=== PATIENT | male | born 1970 | race Caucasian/White ===

== ENCOUNTER 2019-12-16 22:26 | Emergency (ER) | payer OTHER ==
[~2019-12-16] VITALS: Ht 185.4 cm; Wt 136.3 kg
[2019-12-16 22:40] VITALS: BP 135/72
[2019-12-17] MEDS ORDERED: KETOROLAC 60 MG/2 ML VIAL. IM ONE (00:45)
[2019-12-17] MEDS ORDERED: OXYC1TAB15 PO (01:23)
--- NOTE | 2019-12-17 01:26 | PHYS DOC ---
Past Medical History Past Medical History: GERD Past Surgical History: Other Additional Past Surgical Histo: umbilical hernia Smoking Status: Never Smoker Alcohol Use: Rarely General Adult EDM: Chief Complaint: LOWEREXTREMITY INJURY HPI: HPI: Patient is a 48 year old male who presents with right knee pain and injury. Patient reports that on Wednesday evening he was playing with some fellows and during the basketball game he pivoted. When he pivoted his right knee seem to go outward and this caused him to lose his balance. He struck his left thigh on the retaining wall complains of some paresthesias in that area. His biggest concern however is that he has with weightbearing. He thinks that his knee is unstable. He does not think he broke it and did not think that an x-ray was necessary. He otherwise reports he has been doing well. He has no complaints of chest pain, shortness of breath, fever chills, cold exposure or symptoms. Review of Systems: Review of Systems: Constitutional: Denies fever or chills. [] Eyes: Denies change in visual acuity. [] HENT: Denies nasal congestion or sore throat. [] Respiratory: Denies cough or shortness of breath. [] Cardiovascular: Denies chest pain or edema. [] GI: Denies abdominal pain, nausea, vomiting, bloody stools or diarrhea. [] : Denies dysuria. [] Musculoskeletal: Denies back pain [] Integument: Denies rash. [] [] Heart Score: Risk Factors: Risk Factors: DM, Current or recent (<one month) smoker, HTN, HLP, family history of CAD, obesity. Risk Scores: Score 0 - 3: 2.5% MACE over next 6 weeks - Discharge Home Score 4 - 6: 20.3% MACE over next 6 weeks - Admit for Clinical Observation Score 7 - 10: 72.7% MACE over next 6 weeks - Early Invasive Strategies Current Medications: Current Medications Medications (Trade) Dose Ordered Sig/Indira Start Time Stop Time Status Last Admin Dose Admin Ketorolac Tromethamine (Toradol Im) 60 mg 1X ONCE 12/17/19 00:45 12/17/19 00:46 DC 12/17/19 00:40 60 MG Allergies: Allergies: Allergies Coded Allergies Type Severity Reaction Last Updated Verified No Known Drug Allergies 12/17/19 No Physical Exam: PE: Constitutional: Well developed, well nourished, no acute distress, non-toxic appearance. [] HENT: Normocephalic, atraumatic, bilateral external ears normal, oropharynx moist, no oral exudates, nose normal. [] Eyes: PERRLA, EOMI, conjunctiva normal, no discharge. [] Neck: Normal range of motion, no tenderness, supple, no stridor. [] Cardiovascular:Heart rate regular rhythm, no murmur [] Lungs & Thorax: Bilateral breath sounds clear to auscultation [] [] Skin: Warm, dry, no erythema, no rash. [] Back: No tenderness, no CVA tenderness. [] Extremities: The unaffected extremities were with functional range of motion and no deformity. The right knee was inspected closely. No effusion was identified. There was no pain with range of motion. The Lateral collateral ligament was unstable when compared to the left, the other ligaments were all tested and felt to be stable. [] Neurologic: Alert and oriented X 3, normal motor function, normal sensory function, no focal deficits noted. [] [] Current Patient Data: Vital Signs: Vital Signs Date Time Temp Pulse Resp B/P (MAP) Pulse Ox O2 Delivery O2 Flow Rate FiO2 12/16/19 22:40 97.9 74 18 135/72 (93) 96 Room Air 97.9 EKG: EKG: [] Radiology/Procedures: Radiology/Procedures: [] Course & Med Decision Making: Course & Med Decision Making Pertinent Labs and Imaging studies reviewed. (See chart for details) 0121-the patient was seen and examined. At this time he does have some ligamentous instability of the right knee. I think he is suffering from a lateral collateral ligament damage. I discussed with him the treatment plan, reasons to return and need for follow-up. [] Dragon Disclaimer: Dragon Disclaimer: This electronic medical record was generated, in whole or in part, using a voice recognition dictation system. Departure Departure Impression: Primary Impression: Knee pain, right Qualified Codes: M25.561 - Pain in right knee Additional Impression: Tear of lateral collateral ligament of right knee Qualified Codes: S83.421A - Sprain of lateral collateral ligament of right knee, initial encounter Disposition: 01 HOME, SELF-CARE Condition: IMPROVED Referrals: PETER PASCAL (PCP) REGAN PACHECO MD Patient Instructions: Knee - Ligament Injury, Arthroscopy, Lateral Collateral Knee Ligament Sprain with Phase I Re[facility]Sports[facility] Additional Instructions: Rest, ice, elevate, leave the knee immobilizer on, use crutches to ambulate, you may toe touch only Scripts Oxycodone/Apap 5-325 (PERCOCET 5-325 MG TABLET ) 1 Each Tablet 1-2 EACH PO PRN TID PRN for MODERATE PAIN 4-6, #20 TAB pain Prov: KVNG LERMA MD 12/17/19 Justicifation of Admission Dx: Justifications for Admission: Justification of Admission Dx: N/A KVNG LERMA MD Dec 17, 2019 01:26
== END 2019-12-17 01:42 | disposition home or self-care (01) ==
LOC: ER 22:26
DX: S83.421A Sprain of lateral collateral ligament of right knee, initial encounter (principal); R20.2 Paresthesia of skin; K21.9 Gastro-esophageal reflux disease without esophagitis; W22.01XA Walked into wall, initial encounter; Y93.67 Activity, basketball; Y92.89 Other specified places as the place of occurrence of the external cause; Y99.8 Other external cause status
CPT/HCPCS: 29505; 96372; 99283; J1885

== ENCOUNTER 2020-02-24 08:24 | Emergency (ER) | payer OTHER ==
[~2020-02-24] VITALS: Ht 185.4 cm; Wt 140.8 kg
[~2020-02-24 08:24] MED LIST: OXYC1TAB15 PO
[2020-02-24 09:58] LABS: CALCIUM 8.8 mg/dL (8.5-10.1); CREATININE 1.3 mg/dL (0.7-1.3); GFR 58.9; POTASSIUM 3.9 mmol/L (3.5-5.1)
[2020-02-24] MEDS ORDERED: CONTRAST GIVEN. MC PRN (10:15)
[2020-02-24] MEDS ORDERED: IOHEXOL 300 MG/ML 100ML VIAL. IV ONE (10:15)
--- NOTE | 2020-02-24 10:35 | RAD ---
CT pelvis Without Contrast: History: Reason: RT BUTTOCK abscess, UNABLE TO GET IV ACCESS / Spl. Instructions: / History: Comparison: None. Procedure: Axial images are obtained of the pelvis, without IV or oral contrast. Oral Contrast: No Findings: The urinary bladder appears normal. The prostate is not enlarged. There is bilateral fat-containing inguinal canal hernias. There is a 3 cm x 1 cm soft tissue density in the subcutaneous fat deep to the gluteal cleft on the right near the anal canal below the perineum. There is mild surrounding inflammation. There is no focal fluid collection. There is no air collection. Impression: Small area of inflammation in the subcutaneous fat deep to the gluteal cleft on the right posteriorly and inferiorly. This could be inflammation or infection. There is no focal abscess. End impression PQRS Compliance Statement: One or more of the following individualized dose reduction techniques were utilized for this examination: 1. Automated exposure control 2. Adjustment of the mA and/or kV according to patient size 3. Use of iterative reconstruction technique Electronically signed by: Zeke Jernigan III, MD (02/24/2020 10:33 AM) [id number]
--- NOTE | 2020-02-24 11:04 | PHYS DOC ---
Past Medical History Past Medical History: GERD Past Surgical History: Other Additional Past Surgical Histo: umbilical hernia,I&D ABSCESS Smoking Status: Never Smoker Alcohol Use: Rarely General Adult EDM: Chief Complaint: ANIMAL BITE HPI: HPI: Patient is a 49-year-old male who presents to the emergency room complaining of an area of redness and swelling on his buttocks. He states that his puppy bit him last night at 9:00 and at 930 he noticed that the area was red and inflamed. He states that the pain has gotten worse. He denies any fevers. He states it feels very similar to when he had a rectal abscess. He denies any difficulty with constipation or drainage from his anus. Review of Systems: Review of Systems: General: Denies fever, chills, sweats, fatigue Eyes: Denies drainage, blurred vision, eye redness HENT: Denies rhinorrhea, sore throat, earache Respiratory: Denies cough, shortness of breath, wheezing Cardiac: Denies edema, palpitations, chest pain GI: Denies abdominal pain, Nausea, vomiting MSK: Denies back pain, neck pain Skin: Denies rash, jaundice Neuro: Denies headache, dizziness Psychiatric: Denies SI/HI Heart Score: Risk Factors: Risk Factors: DM, Current or recent (<one month) smoker, HTN, HLP, family history of CAD, obesity. Risk Scores: Score 0 - 3: 2.5% MACE over next 6 weeks - Discharge Home Score 4 - 6: 20.3% MACE over next 6 weeks - Admit for Clinical Observation Score 7 - 10: 72.7% MACE over next 6 weeks - Early Invasive Strategies Current Medications: Current Medications Medications (Trade) Dose Ordered Sig/Indira Start Time Stop Time Status Last Admin Dose Admin Info (CONTRAST GIVEN -- Rx MONITORING) 1 each PRN DAILY PRN 02/24/20 10:15 02/26/20 10:14 Iohexol (Omnipaque 300 Mg/ml) 60 ml 1X ONCE 02/24/20 10:15 02/24/20 10:16 DC Allergies: Allergies: Allergies Coded Allergies Type Severity Reaction Last Updated Verified No Known Drug Allergies 12/17/19 No Physical Exam: PE: General: Awake, alert, NAD. Well Nourished, well hydrated. Cooperative HEENT: Atraumatic, EOMI, PERRL, airway patent, moist oral mucosa Neck: Supple, trachea midline Respiratory: CTA bilaterally, normal effort, no wheezing/crackles CV: RRR, no murmur, cap refill <2 GI: Soft, nondistended, nontender, no masses MSK: No obvious deformities Skin: Warm, dry, 2x2 centimeter area of erythema and induration without fluctuance to the right inner buttock Neuro: A&O x3, speech NL, sensory and motor grossly intact, no focal deficits Psych: Normal affect, normal mood, not suicidal or homicidal Current Patient Data: Labs: Laboratory Tests Test 02/24/20 09:35 Sodium Level 140 mmol/L (136-145) Potassium Level 3.9 mmol/L (3.5-5.1) Chloride Level 105 mmol/L (98-107) Carbon Dioxide Level 25 mmol/L (21-32) Anion Gap 10 (6-14) Blood Urea Nitrogen 14 mg/dL (8-26) Creatinine 1.3 mg/dL (0.7-1.3) Estimated GFR (Cockcroft-Gault) 58.9 Glucose Level 129 mg/dL (70-99) H Calcium Level 8.8 mg/dL (8.5-10.1) Laboratory Tests 02/24/20 09:35 Vital Signs: Vital Signs Date Time Temp Pulse Resp B/P (MAP) Pulse Ox O2 Delivery O2 Flow Rate FiO2 02/24/20 08:36 98.2 75 17 163/78 (106) 96 Room Air 98.2 EKG: EKG: [] Radiology/Procedures: Radiology/Procedures: [] Course & Med Decision Making: Course & Med Decision Making Pertinent Labs and Imaging studies reviewed. (See chart for details) Patient is 49-year-old male presents to the emergency room with redness to the right inner buttock. Area does not appear to be fluctuant. Patient does state it feels similar to when he had a subrectal abscess. CT will be done due to that history. CT is negative though shows cellulitis. Patient will be treated with clindamycin. Patient's test results and vitals while in the ED were fully reviewed and discussed with the patient. Patient is stable and at this time does not need admission to the hospital. We have discussed strict return precautions and the importance of following up with their Primary Care Physician. Patient stated understanding and was given an opportunity to ask any questions. Patient is in agreement with plan. Dragon Disclaimer: Dragon Disclaimer: This electronic medical record was generated, in whole or in part, using a voice recognition dictation system. Departure Departure Impression: Primary Impression: Cellulitis of buttock Disposition: 01 DC HOME SELF CARE/HOMELESS Condition: STABLE Referrals: PETER PASCAL (PCP) Patient Instructions: Cellulitis Scripts Clindamycin Hcl (CLINDAMYCIN HCL) 150 Mg Capsule 3 CAP PO TID for 10 Days, #90 CAP Prov: VIGNESH PEDROZA MD 02/24/20 VIGNESH PEDROZA MD Feb 24, 2020 11:04
[2020-02-24] MEDS ORDERED: CLIN150C14 PO (11:10)
[2020-02-24 11:40] VITALS: BP 131/78
== END 2020-02-24 11:50 | disposition home or self-care (01) ==
LOC: ER 08:24
DX: L03.317 Cellulitis of buttock (principal); K21.9 Gastro-esophageal reflux disease without esophagitis
CPT/HCPCS: 36415; 72192; 80048; 99284

== ENCOUNTER 2020-03-02 06:03 | Emergency (ER) | payer OTHER ==
[~2020-03-02] VITALS: Ht 185.4 cm; Wt 136.4 kg
[~2020-03-02 06:03] MED LIST changes: +CLIN150C14 PO
[2020-03-02 06:20] VITALS: BP 130/71
[2020-03-02] MEDS ORDERED: PRED20TA PO (06:51)
[2020-03-02] MEDS ORDERED: FAMO-63 PO (06:51)
[2020-03-02] MEDS ORDERED: SULF1TAB24 PO (06:51)
[2020-03-02] MEDS ORDERED: HYDR-2868 PO (06:51)
--- NOTE | 2020-03-02 06:51 | PHYS DOC ---
Past Medical History Past Medical History: GERD Past Surgical History: Other Additional Past Surgical Histo: umbilical hernia,I&D ABSCESS, NOSE Smoking Status: Never Smoker Alcohol Use: None General Adult EDM: Chief Complaint: SKIN RASH/ABSCESS HPI: HPI: Patient is a 49 year old male who presented to ER with itching rash all over his body started yesterday. Patient had been on clindamycin for abscess on his buttock for about 7-days. Patient denies any chest pain, no trouble breathing. He denies any trouble swallowing or tongue swelling. Review of Systems: Review of Systems: Constitutional: Denies fever or chills. [] Eyes: Denies change in visual acuity. [] HENT: Denies nasal congestion or sore throat. [] Respiratory: Denies cough or shortness of breath. [] Cardiovascular: Denies chest pain or edema. [] GI: Denies abdominal pain, nausea, vomiting, bloody stools or diarrhea. [] : Denies dysuria. [] Musculoskeletal: Denies back pain or joint pain. [] Integument: Positive for rash and itching. Neurologic: Denies headache, focal weakness or sensory changes. [] Endocrine: Denies polyuria or polydipsia. [] Lymphatic: Denies swollen glands. [] Psychiatric: Denies depression or anxiety. [] Heart Score: Risk Factors: Risk Factors: DM, Current or recent (<one month) smoker, HTN, HLP, family history of CAD, obesity. Risk Scores: Score 0 - 3: 2.5% MACE over next 6 weeks - Discharge Home Score 4 - 6: 20.3% MACE over next 6 weeks - Admit for Clinical Observation Score 7 - 10: 72.7% MACE over next 6 weeks - Early Invasive Strategies Current Medications: Current Medications Medications (Trade) Dose Ordered Sig/Indira Start Time Stop Time Status Last Admin Dose Admin Famotidine (Pepcid) 20 mg 1X ONCE 03/02/20 07:00 03/02/20 07:01 Methylprednisolone Sodium Succinate (SOLU-Medrol 125MG VIAL) 125 mg 1X ONCE 03/02/20 07:00 03/02/20 07:01 Allergies: Allergies: Allergies Coded Allergies Type Severity Reaction Last Updated Verified No Known Drug Allergies 12/17/19 No Physical Exam: PE: Constitutional: Well developed, well nourished, no acute distress, non-toxic appearance. [] HENT: Normocephalic, atraumatic, bilateral external ears normal, oropharynx moist, no oral exudates, nose normal. [] Eyes: PERRLA, EOMI, conjunctiva normal, no discharge. [] Neck: Normal range of motion, no tenderness, supple, no stridor. [] Cardiovascular:Heart rate regular rhythm, no murmur [] Lungs & Thorax: Bilateral breath sounds clear to auscultation [] Abdomen: Bowel sounds normal, soft, no tenderness, no masses, no pulsatile masses. [] Skin: diffuse maculopapular rash on extremities and chest. Back: No tenderness, no CVA tenderness. [] Extremities: No tenderness, no cyanosis, no clubbing, ROM intact, no edema. [] Neurologic: Alert and oriented X 3, normal motor function, normal sensory function, no focal deficits noted. [] Psychologic: Affect normal, judgement normal, mood normal. [] Current Patient Data: Vital Signs: Vital Signs Date Time Temp Pulse Resp B/P (MAP) Pulse Ox O2 Delivery O2 Flow Rate FiO2 03/02/20 06:20 97.8 85 130/71 (90) 98 97.8 03/02/20 06:03 18 Room Air EKG: EKG: [] Radiology/Procedures: Radiology/Procedures: [] Course & Med Decision Making: Course & Med Decision Making Pertinent Labs and Imaging studies reviewed. (See chart for details) Patient is a 49-year-old male who presents with rash, suspicious of allergic to clindamycin, will replace clindamycin with Bactrim Matthew RAMOS Disclaimer: Matthew Disclaimer: This electronic medical record was generated, in whole or in part, using a voice recognition dictation system. Departure Departure Impression: Primary Impression: Allergic reaction caused by a drug Disposition: 01 DC HOME SELF CARE/HOMELESS Condition: STABLE Referrals: PETER PASCAL (PCP) please follow up with your doctor on Wednesday for reevaluation Patient Instructions: Doxylamine tablets (allergy) Additional Instructions: stop taking CLINDAMYCIN now. You are allergic to to it. Scripts Hydroxyzine Pamoate (VISTARIL) 25 Mg Capsule 1 CAP PO TID PRN for ITCHING, #30 CAP 1 Refill Prov: HARLAN MCBRIDE DO 03/02/20 Prednisone (PREDNISONE) 20 Mg Tablet 1 TAB PO DAILY for 7 Days, #7 TAB Prov: HARLAN MCBRIDE DO 03/02/20 Famotidine (PEPCID) 20 Mg Tablet 20 MG PO HS for 7 Days, #7 TAB Prov: HARLAN MCBRIDE DO 03/02/20 Sulfamethoxazole/Trimethoprim (BACTRIM DS TABLET) 1 Each Tablet 1 TAB PO BID for 7 Days, #14 TAB 0 Refills Prov: HARLAN MCBRIDE DO 03/02/20 HARLAN MCBRIDE DO Mar 02, 2020 06:51
[2020-03-02] MEDS ORDERED: HYDR25CA PO (06:53)
[2020-03-02] MEDS ORDERED: FAMOTIDINE 20 MG TABLET. PO ONE (07:00)
[2020-03-02] MEDS ORDERED: methylPREDNISolone SOD SUCC PF 125 MG/2 ML VIAL. IM ONE (07:00)
== END 2020-03-02 07:00 | disposition home or self-care (01) ==
LOC: ER 06:03
DX: L27.0 Generalized skin eruption due to drugs and medicaments taken internally (principal); T36.8X5A Adverse effect of other systemic antibiotics, initial encounter; K21.9 Gastro-esophageal reflux disease without esophagitis; Y92.89 Other specified places as the place of occurrence of the external cause
CPT/HCPCS: 96372; 99283; J2930

== ENCOUNTER 2021-02-15 17:30 | Emergency (ER) | payer OTHER ==
[~2021-02-15] VITALS: Ht 154.9 cm; Wt 127.0 kg
[~2021-02-15 17:30] MED LIST changes: -CLIN150C14 PO; +CLIN150C16 PO; +FAMO-63 PO; +HYDR-2868 PO; +HYDR25CA PO; +PRED20TA PO; +SULF1TAB24 PO
[2021-02-15 18:13] VITALS: BP 148/75
--- NOTE | 2021-02-15 18:32 | PHYS DOC ---
Past Medical History Past Medical History: GERD Past Surgical History: No Surgical History Additional Past Surgical Histo: umbilical hernia,I&D ABSCESS, NOSE Smoking Status: Never Smoker Alcohol Use: None General Adult EDM: Chief Complaint: ANKLE PROBLEM HPI: HPI: Patient is a 50 year old male who presents to the ED today to be evaluated after falling off a ladder. Patient states he was working on his roof, he states his ladder started to move, he jumped off the ladder roughly from 6 foot and landed on the ground on his left heel. Patient denies any loss of consciousness, denies hitting his head on the ground. He is complaining of moderate pain on the heel and Achilles tendon worse on weightbearing. He states he was hoping to get an MRI to rule out Achilles tendon tear. Patient denies any back pain. Review of Systems: Review of Systems: Constitutional: Denies fever or chills. [] Musculoskeletal: Reports left heel/Achilles tendon pain denies back pain Integument: Denies rash. [] Neurologic: Denies headache, focal weakness or sensory changes. [] Psychiatric: Denies depression or anxiety. [] Heart Score: C/O Chest Pain: N/A Risk Factors: Risk Factors: DM, Current or recent (<one month) smoker, HTN, HLP, family history of CAD, obesity. Risk Scores: Score 0 - 3: 2.5% MACE over next 6 weeks - Discharge Home Score 4 - 6: 20.3% MACE over next 6 weeks - Admit for Clinical Observation Score 7 - 10: 72.7% MACE over next 6 weeks - Early Invasive Strategies Allergies: Allergies: Allergies Coded Allergies Type Severity Reaction Last Updated Verified No Known Drug Allergies 12/17/19 No Physical Exam: PE: Constitutional: Well developed, well nourished, no acute distress, non-toxic appearance. [] Skin: Warm, dry, no erythema, no rash. [] Back: No tenderness, no CVA tenderness. [] Extremities: Left foot/lower extremity with no obvious deformity. Tenderness on palpation of the left Achilles tendon and heel, bone spur noted on the left heel. Patient able to flex and extend the left foot. Left to left pedal pulse. Cap refill less than 2 seconds in left toes. Sensation intact to the left lower extremity. Neurologic: Alert and oriented X 3, normal motor function, normal sensory function, no focal deficits noted. [] Psychologic: Affect normal, judgement normal, mood normal. [] Current Patient Data: Vital Signs: Vital Signs Date Time Temp Pulse Resp B/P (MAP) Pulse Ox O2 Delivery O2 Flow Rate FiO2 02/15/21 18:13 98.6 64 18 148/75 (99) Room Air 98.6 EKG: EKG: [] Radiology/Procedures: Radiology/Procedures: []PROCEDURE: FOOT LEFT 3V LEFT FOOT AP LATERAL OBLIQUE Clinical Indication: Reason: heal achiles pain fell off a 6ft ladder / Spl. Instructions: / History: Comparison: None. Findings: There is no acute fracture or dislocation. The bony alignment is normal. Mineralization is normal. No bony erosion. There is moderate Achilles enthesophyte. There is mild soft tissue swelling posterior to the enthesophyte. There is no dorsal soft tissue swelling of the foot. IMPRESSION: No acute fracture. Electronically signed by: Jesse Ellis MD (02/15/2021 7:19 PM) [facility] DICTATED and SIGNED BY: JESSE ELLIS MD DATE: 02/15/21 [id number] Course & Med Decision Making: Course & Med Decision Making Pertinent Labs and Imaging studies reviewed. (See chart for details) This a 50-year-old male patient who presents to the ED today with complaints of left heel/ left Achilles tendon pain that began after he jumped off a 6 foot ladder landing on his heel. Patient denies any back pain. He is requesting MRI of his left leg to rule out Achilles tendon tear. Informed patient we typically do not do MRI for Achilles tendon tear is in the emergency room. Left foot x-rays were done which were negative for any acute findings. He was put in an orthopedic shoe by the ED RN. He was instructed to contact the provided orthopedic doctor on Wednesday morning and set up a follow-up appointment Matthew Disclaimer: Matthew Disclaimer: This electronic medical record was generated, in whole or in part, using a voice recognition dictation system. Departure Departure Impression: Primary Impression: Fall Qualified Codes: W19.XXXA - Unspecified fall, initial encounter Additional Impressions: Bone spur of foot Heel pain Qualified Codes: M79.672 - Pain in left foot Disposition: HOME / SELF CARE / HOMELESS Condition: STABLE Referrals: PETER PASCAL (PCP) KVNG PEACOCK MD Call his office on Wednesday and set up a follow-up appointment Patient Instructions: Foot Sprain, Heel Spur Additional Instructions: You were seen for left heel/Achilles tendon pain. Your left foot x-rays are negative for any acute findings. We encourage you to contact the provided orthopedic doctor on Wednesday and set up a follow-up appointment. Try to ice and elevate to the affected extremity. Scripts Hydrocodone Bit/Acetaminophen (HYDROCODONE-APAP 5-325 ) 1 Tab Tablet 1 TAB PO PRN Q6HRS PRN for PAIN, #20 TAB 0 Refills Prov: GREGORIO BANKS APRN 02/15/21 GREGORIO BANKS APRN Feb 15, 2021 18:32
[2021-02-15] MEDS ORDERED: ACETAMINOPHEN 500 MG TABLET PO ONE (19:15)
--- NOTE | 2021-02-15 19:22 | RAD ---
LEFT FOOT AP LATERAL OBLIQUE Clinical Indication: Reason: heal achiles pain fell off a 6ft ladder / Spl. Instructions: / History: Comparison: None. Findings: There is no acute fracture or dislocation. The bony alignment is normal. Mineralization is normal. N o bony erosion. There is moderate Achilles enthesophyte. There is mild soft tissue swelling posterior to the enthesop hyte. There is no dorsal soft tissue swelling of the foot. IMPRESSION: No acute fracture. Electronically signed by: Jesse Ellis MD (02/15/2021 7:19 PM) [facility]
[2021-02-15] MEDS ORDERED: HYDR-2761 PO (19:45)
== END 2021-02-15 20:25 | disposition home or self-care (01) ==
LOC: ER 17:30
DX: M77.8 Other enthesopathies, not elsewhere classified (principal); M79.672 Pain in left foot; K21.9 Gastro-esophageal reflux disease without esophagitis; W11.XXXA Fall on and from ladder, initial encounter; Y93.89 Activity, other specified; Y92.89 Other specified places as the place of occurrence of the external cause; Y99.8 Other external cause status
CPT/HCPCS: 73630; 99283